=== PATIENT | male | born 1955 | race Two or more races ===

== ENCOUNTER → 2024-08-29 | Outpatient (CLI) | payer MEDICARE, MEDICAID, SELFPAY ==
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
== END | disposition home or self-care (01) ==
PROVIDERS: PCP Physician Assistant; Referring Provider Physician Assistant; Visit Provider Physician Assistant
DX: S46.011A Strain of muscle(s) and tendon(s) of the rotator cuff of right shoulder, initial encounter (principal); W19.XXXA Unspecified fall, initial encounter; M25.811 Other specified joint disorders, right shoulder
CPT/HCPCS: 73221

== ENCOUNTER → 2025-09-11 | Outpatient (CLI) | payer MEDICARE, MEDICAID, SELFPAY ==
--- NOTE | 2025-09-11 14:44 | XR_ITS ---
Examination: Abdomen AP single view Technique: AP portable supine abdomen, single view Exam date and time: August 12, 2025 1515 hours INDICATIONS: Abdominal pain 2 years. FINDINGS: Moderate to large amounts of stool throughout the colon No obstruction No free air Moderate osteopenia IMPRESSION: Moderate to large amount of stool throughout the colon
== END | disposition home or self-care (01) ==
PROVIDERS: PCP Physician Assistant; Referring Provider Physician Assistant; Visit Provider Physician Assistant
DX: K59.00 Constipation, unspecified (principal)
CPT/HCPCS: 74018